=== PATIENT | male | born 1970 | race Two or more races ===

== ENCOUNTER 2024-07-31 20:27 | Inpatient (IN) | payer OTHER ==
[~2024-07-31] VITALS: Ht 180.3 cm; Wt 98.0 kg
[2024-07-31 09:14] VITALS: BP 137/83; PULSE 80
[2024-07-31] MEDS: TICAGRELOR 90 MG TABLET PO ONE (20:42)
[2024-07-31] MEDS: ATORVASTATIN CALCIUM 40 MG TABLET PO ONE (20:44)
[2024-07-31] MEDS: HEPARIN SODIUM,PORCINE 5,000 UNITS/ML VIAL IVP ONE (20:44)
[2024-07-31] MEDS ORDERED: IOHEXOL 300 MG/ML 100 ML VIAL ONE ×2 (20:58→21:46)
[2024-07-31] MEDS ORDERED: SODIUM BICARBONATE 50 MEQ/50 ML VIAL ONE (20:58)
[2024-07-31] MEDS ORDERED: LIDOCAINE/PF 1% 30 ML VIAL ONE (20:58)
[2024-07-31] MEDS ORDERED: VERAPAMIL HCL 2.5 MG/ML 2 ML VIAL ONE (20:58)
[2024-07-31] MEDS ORDERED: HEPARIN SODIUM 1000 UNITS/NS 1,000 ML ONE (20:59)
[2024-07-31] MEDS ORDERED: NITROGLYCERIN 50 MG/D5% WATER 250 ML ONE (20:59)
[2024-07-31 21:03] LABS: BASOPHILS % (AUTO) 0.6 % (0.0-2.0); EOSINOPHILS % (AUTO) 0.8 % (1.0-6.0); HEMATOCRIT 42.1 % (41-53); HEMOGLOBIN 14.2 g/dL (13.5-17.5); LYMPHOCYTES # (AUTO) 2.1 K/uL (1.0-4.8); LYMPHOCYTES % (AUTO) 24.9 % (22.0-44.0); MEAN CORPUSCULAR HGB CONC 33.8 G/dL (31.0-37.0); MEAN CORPUSCULAR VOLUME 86 fL (80-100); MONOCYTES # (AUTO) 0.4 K/uL (0.1-1.0); MONOCYTES % (AUTO) 5.1 % (2.0-9.0); NEUTROPHILS # (AUTO) 5.8 K/uL (1.8-7.7); NEUTROPHILS % (AUTO) 68.6 % (40.0-70.0); PLATELET COUNT (AUTO) 228 K/uL (150-450); RED CELL DISTRIBUTION WIDTH 13.8 % (11.5-14.5); WHITE BLOOD COUNT (AUTO) 8.4 K/uL (4.5-11.0)
[2024-07-31 21:11] LABS: ANION GAP 12 mmol/L (8-16); CALCIUM, TOTAL 8.9 mg/dL (8.8-10.5); CARBON DIOXIDE 24 mmol/L (22-29); CHLORIDE 102 mmol/L (98-107); GLOMERULAR FILTR. RATE CALC > 60 mL/min (>60); GLUCOSE,RANDOM 171 mg/dL (70-110); POTASSIUM 3.3 mmol/L (3.5-5.1); SODIUM SERUM 138 mmol/L (136-145); UREA NITROGEN, BLOOD 16 mg/dL (7-18)
[2024-07-31 21:14] VITALS: BP 137/83; PULSE 80
[2024-07-31] MEDS ORDERED: ONDANSETRON HCL 4 MG/2 ML VIAL IVP PRN (21:15)
[2024-07-31 21:18] LABS: PROTHROMBIN TIME 10.8 SEC (9.4-11.6)
[2024-07-31 21:19] LABS: TROPONIN I-HIGH SENSITIVITY 6 ng/L (<76)
[2024-07-31] MEDS ORDERED: FentaNYL CITRATE PF 100 MCG/2 ML VIAL ONE (21:19)
[2024-07-31] MEDS ORDERED: MIDAZOLAM HCL 2 MG/2 ML VIAL ONE (21:19)
[2024-07-31 21:34] LABS: B-TYPE NATRIURETIC PEPTIDE < 5 pg/mL (0-100)
[2024-07-31] MEDS: FentaNYL CITRATE PF 100 MCG/2 ML VIAL IVP ONE (21:41)
[2024-07-31] MEDS: LIDOCAINE 1% 30 ML/SOD BICARB 8.4% 4 ML SQ ONE (21:41)
[2024-07-31] MEDS: MIDAZOLAM HCL 2 MG/2 ML VIAL IVP ONE (21:41)
[2024-07-31] MEDS: HEPARIN SODIUM,PORCINE 1,000 UNITS/ML 10 ML VIAL IVP ONE (21:42)
[2024-07-31] MEDS: HEPARIN SODIUM 1000 UNITS/NS 1,000 ML IARTER ONE (21:42)
[2024-07-31] MEDS: IOHEXOL 300 MG/ML 100 ML VIAL IARTER ONE ×3 (21:43→22:41)
[2024-07-31] MEDS ORDERED: EPTIFIBATIDE 2 MG/ML 10 ML VIAL IVP ONE (22:33)
[2024-07-31] MEDS ORDERED: FUROSEMIDE 40 MG/4 ML VIAL ONE (22:33)
[2024-07-31] MEDS: NITROGLYCERIN/D5W 50 MG/250 ML IV BOTTLE ICOR ONE ×2 (22:39→22:50)
[2024-07-31] MEDS: FUROSEMIDE 40 MG/4 ML VIAL IVP ONE (22:40)
[2024-07-31] MEDS: EPTIFIBATIDE 2 MG/ML 10 ML VIAL IVP ONE (22:40)
[2024-07-31 22:49] VITALS: BP 136/91; PULSE 65
[2024-07-31] MEDS: CHLORHEXIDINE GLUCONATE 2% TOWELETTE [2'S/6'S] TP SCH (23:55)
[2024-07-31] MEDS: ACETAMINOPHEN 325 MG TABLET PO PRN (23:55)
[2024-07-31 23:57] LABS: CHOL/HDL RATIO 4.5 (4.2-7.3); CHOLESTEROL 214 mg/dL (131-200); HDL CHOLESTEROL 48 mg/dL (40-60); LDL CHOL (CALC.) 126 mg/dL (0-130); TRIGLYCERIDES 201 mg/dL (15-150)
[2024-08-01] MEDS: HEPARIN SODIUM,PORCINE 5,000 UNITS/ML VIAL SQ SCH
[2024-08-01 00:11] LABS: APPEARANCE,URINE CLEAR (CLEAR); BILIRUBIN,URINE NEGATIVE (NEGATIVE); COLOR,URINE COLORLESS (YELLOW); GLUCOSE, URINE (UA) NEGATIVE (NEGATIVE); KETONES,URINE NEGATIVE (NEGATIVE); LEUKOCYTE ESTERASE ,URINE NEGATIVE (NEGATIVE); NITRATE,URINE NEGATIVE (NEGATIVE); OCCULT BLOOD,URINE NEGATIVE (NEGATIVE); PROTEIN,URINE NEGATIVE (NEGATIVE); SPECIFIC GRAVITIY, URINE 1.015 (1.003-1.030); UROBILINOGEN,URINE <=1.0 mg/dL (<=1.0)
[2024-08-01] MEDS: MORPHINE SULFATE 2 MG/ML SYRINGE IVP PRN (00:40)
[2024-08-01 06:38] LABS: BASOPHILS % (AUTO) 0.2 % (0.0-2.0); EOSINOPHILS % (AUTO) 0 % (1.0-6.0); HEMATOCRIT 43.9 % (41-53); LYMPHOCYTES # (AUTO) 0.7 K/uL (1.0-4.8); MEAN CORPUSCULAR HEMOGLOBIN 29.3 pg (26.0-34.0); MEAN CORPUSCULAR HGB CONC 34.2 G/dL (31.0-37.0); MEAN CORPUSCULAR VOLUME 86 fL (80-100); MONOCYTES # (AUTO) 0.3 K/uL (0.1-1.0); MONOCYTES % (AUTO) 3.3 % (2.0-9.0); NEUTROPHILS # (AUTO) 9.3 K/uL (1.8-7.7); PLATELET COUNT (AUTO) 250 K/uL (150-450); RED BLOOD CELL COUNT(AUTO) 5.12 MIL/uL (4.50-5.90); RED CELL DISTRIBUTION WIDTH 13.9 % (11.5-14.5); WHITE BLOOD COUNT (AUTO) 10.3 K/uL (4.5-11.0)
[2024-08-01 06:41] LABS: NEUTROPHILS % (AUTO) 89.5 % (40.0-70.0)
[2024-08-01 06:47] LABS: ANION GAP 5 mmol/L (8-16); CALCIUM, TOTAL 9.2 mg/dL (8.8-10.5); CARBON DIOXIDE 30 mmol/L (22-29); CHLORIDE 101 mmol/L (98-107); CREATININE 1.15 mg/dL (0.60-1.30); GLOMERULAR FILTR. RATE CALC > 60 mL/min (>60); GLUCOSE,RANDOM 169 mg/dL (70-110); POTASSIUM 4.4 mmol/L (3.5-5.1); SODIUM SERUM 136 mmol/L (136-145); UREA NITROGEN, BLOOD 13 mg/dL (7-18)
[2024-08-01] MEDS: DOCUSATE SODIUM 100 MG CAPSULE PO SCH (08:26)
[2024-08-01] MEDS: ASPIRIN 81 MG CHEWABLE TABLET PO SCH (08:26)
[2024-08-01] MEDS: TICAGRELOR 90 MG TABLET PO SCH (08:26)
[2024-08-01] MEDS: ROSUVASTATIN CALCIUM 20 MG TABLET PO SCH (08:27)
[2024-08-01] MEDS: METOPROLOL SUCCINATE 25 MG ER TABLET PO SCH (08:27)
[2024-08-01] MEDS ORDERED: CARVEDILOL 3.125 MG TABLET PO SCH (09:00)
[2024-08-01] MEDS: LOSARTAN POTASSIUM 25 MG TABLET PO SCH (12:22)
[2024-08-01 14:10] VITALS: BP 120/75; PULSE 63; RESP 18; TEMP 98.5; O2SAT 97
[2024-08-01 15:53] VITALS: BP 102/65; PULSE 62; RESP 18; TEMP 97.8; O2SAT 98
[2024-08-01 20:14] VITALS: BP 104/68; PULSE 66; RESP 18; TEMP 97.3; O2SAT 96
[2024-08-01 23:50] VITALS: BP 101/62; PULSE 61; RESP 18; TEMP 98.3; O2SAT 95
[2024-08-02 03:48] VITALS: BP 115/68; PULSE 66; RESP 16; TEMP 98.6; O2SAT 97
[2024-08-02 06:59] LABS: BASOPHILS % (AUTO) 0.2 % (0.0-2.0); EOSINOPHILS % (AUTO) 0.5 % (1.0-6.0); HEMATOCRIT 41.7 % (41-53); HEMOGLOBIN 14.1 g/dL (13.5-17.5); LYMPHOCYTES # (AUTO) 1.7 K/uL (1.0-4.8); LYMPHOCYTES % (AUTO) 21.1 % (22.0-44.0); MEAN CORPUSCULAR HEMOGLOBIN 29.1 pg (26.0-34.0); MEAN CORPUSCULAR HGB CONC 33.8 G/dL (31.0-37.0); MEAN CORPUSCULAR VOLUME 86 fL (80-100); MONOCYTES # (AUTO) 0.6 K/uL (0.1-1.0); MONOCYTES % (AUTO) 7.8 % (2.0-9.0); NEUTROPHILS # (AUTO) 5.6 K/uL (1.8-7.7); NEUTROPHILS % (AUTO) 70.4 % (40.0-70.0); PLATELET COUNT (AUTO) 225 K/uL (150-450); RED BLOOD CELL COUNT(AUTO) 4.84 MIL/uL (4.50-5.90); RED CELL DISTRIBUTION WIDTH 14.1 % (11.5-14.5); WHITE BLOOD COUNT (AUTO) 7.9 K/uL (4.5-11.0)
[2024-08-02 07:07] LABS: ANION GAP 8 mmol/L (8-16); CALCIUM, TOTAL 8.8 mg/dL (8.8-10.5); CARBON DIOXIDE 28 mmol/L (22-29); CHLORIDE 102 mmol/L (98-107); CREATININE 1.01 mg/dL (0.60-1.30); GLOMERULAR FILTR. RATE CALC > 60 mL/min (>60); GLUCOSE,RANDOM 104 mg/dL (70-110); SODIUM SERUM 138 mmol/L (136-145); UREA NITROGEN, BLOOD 16 mg/dL (7-18)
[2024-08-02 07:31] VITALS: BP 110/68; PULSE 67; RESP 18; TEMP 98.2; O2SAT 96
[2024-08-02 11:10] VITALS: BP 101/73; PULSE 63; RESP 16; TEMP 97.6; O2SAT 96
[2024-08-02] MEDS ORDERED: LOSA-417 PO (11:12)
[2024-08-02] MEDS ORDERED: TICA90TA PO (11:12)
[2024-08-02] MEDS ORDERED: ASPI-1450 PO (11:12)
[2024-08-02] MEDS ORDERED: ROSU20TA98 PO (11:12)
[2024-08-02] MEDS ORDERED: METO25XL PO (11:12)
[2024-08-02 16:00] VITALS: BP 105/58; PULSE 76; RESP 17; TEMP 97.6; O2SAT 94
[2024-08-02 21:00] VITALS: BP 100/67; PULSE 67; RESP 18; TEMP 98.2; O2SAT 95
[2024-08-03 00:22] VITALS: BP 103/68; PULSE 66; RESP 18; TEMP 98.3; O2SAT 94
[2024-08-03 04:31] VITALS: BP 96/65; PULSE 65; RESP 18; TEMP 98.5; O2SAT 97
[2024-08-03 07:48] VITALS: BP 104/69; PULSE 67; RESP 18; TEMP 97.8; O2SAT 96
[2024-08-03 08:00] LABS: ANION GAP 7 mmol/L (8-16); CALCIUM, TOTAL 8.7 mg/dL (8.8-10.5); CARBON DIOXIDE 26 mmol/L (22-29); CHLORIDE 103 mmol/L (98-107); GLOMERULAR FILTR. RATE CALC > 60 mL/min (>60); GLUCOSE,RANDOM 100 mg/dL (70-110); SODIUM SERUM 136 mmol/L (136-145); UREA NITROGEN, BLOOD 19 mg/dL (7-18)
[2024-08-03 08:01] LABS: BASOPHILS % (AUTO) 0.3 % (0.0-2.0); HEMATOCRIT 41.2 % (41-53); HEMOGLOBIN 13.8 g/dL (13.5-17.5); LYMPHOCYTES # (AUTO) 1.8 K/uL (1.0-4.8); LYMPHOCYTES % (AUTO) 24.7 % (22.0-44.0); MEAN CORPUSCULAR HGB CONC 33.5 G/dL (31.0-37.0); MEAN CORPUSCULAR VOLUME 86 fL (80-100); MONOCYTES # (AUTO) 0.6 K/uL (0.1-1.0); MONOCYTES % (AUTO) 7.8 % (2.0-9.0); NEUTROPHILS # (AUTO) 4.9 K/uL (1.8-7.7); NEUTROPHILS % (AUTO) 66.2 % (40.0-70.0); PLATELET COUNT (AUTO) 210 K/uL (150-450); RED BLOOD CELL COUNT(AUTO) 4.77 MIL/uL (4.50-5.90); RED CELL DISTRIBUTION WIDTH 14.1 % (11.5-14.5); WHITE BLOOD COUNT (AUTO) 7.4 K/uL (4.5-11.0)
[2024-08-03] MEDS: METOPROLOL SUCCINATE 25 MG ER TABLET PO SCH (08:19)
== END 2024-08-03 13:00 | disposition home or self-care (01) | DRG 321 ==
LOC: EMS 20:30 → EDH 21:10 → 5S 08-01 13:37
PROVIDERS: ADMIT Internal Medicine; ATTEND Internal Medicine
PROC: 027036Z Dilation of Coronary Artery, One Artery with Three Drug-eluting Intraluminal Devices, Percutaneous Approach (ICD-10-PCS; principal; 2024-07-31)
PROC: 4A023N7 Measurement of Cardiac Sampling and Pressure, Left Heart, Percutaneous Approach (ICD-10-PCS; 2024-07-31)
PROC: B2111ZZ Fluoroscopy of Multiple Coronary Arteries using Low Osmolar Contrast (ICD-10-PCS; 2024-07-31)
PROC: 3E073PZ Introduction of Platelet Inhibitor into Coronary Artery, Percutaneous Approach (ICD-10-PCS; 2024-07-31)
PROC: B240ZZ3 Ultrasonography of Single Coronary Artery, Intravascular (ICD-10-PCS; 2024-07-31)
DX: I21.19 ST elevation (STEMI) myocardial infarction involving other coronary artery of inferior wall (principal); J96.00 Acute respiratory failure, unspecified whether with hypoxia or hypercapnia; I10 Essential (primary) hypertension; E78.5 Hyperlipidemia, unspecified; E87.6 Hypokalemia; F17.200 Nicotine dependence, unspecified, uncomplicated; R73.9 Hyperglycemia, unspecified; Z79.02 Long term (current) use of antithrombotics/antiplatelets; Z79.82 Long term (current) use of aspirin; Z79.899 Other long term (current) drug therapy
CPT/HCPCS: 71045; 75960; 80048; 80061; 81003; 83036; 83735; 83880; 84484; 85025; 85610; 85730; 86850; 86900; 86901; 92920; 92928; 93005; 93306; 99291; J1327; J1644; J1940; J2250; J2270; J2405; J3010; J3490; Q9967; 36415-L1; 36415-TC; Z7610